=== PATIENT | male | born 1940 | race Two or more races ===

== ENCOUNTER 2020-12-30 14:25 | Inpatient (IN) | payer MEDICARE, MEDICAID ==
[~2020-12-30] VITALS: Ht 167.6 cm; Wt 62.7 kg
[2020-12-30 15:20] LABS: Basophils # (auto) 0.1 10 ^3/uL (0-0.2); Basophils % (auto) 0.6 % (0.0-2.0); Eosinophils # (auto) 0.1 10 ^3/uL (0-0.8); Eosinophils % (auto) 1.1 % (0.0-7.0); Hematocrit 33.5 % (41.0-53.0); Hemoglobin 11.4 g/dL (13.5-17.5); Lymphocytes # (auto) 2.4 10 ^3/uL (0.4-5.4); Lymphocytes % (auto) 23.2 % (10.0-50.0); Mean Corpuscular Hemoglobin 30.4 pg (28.0-32.0); Mean Corpuscular Hgb Conc. 33.9 g/dL (32.0-36.0); Mean Corpuscular Volume 89.7 fL (80.0-100.0); Monocytes # (auto) 0.7 10 ^3/uL (0-1.3); Neutrophils # (auto) 7.1 10 ^3/uL (1.6-8.6); Neutrophils % (auto) 68.1 % (37.0-80.0); Nucleated Red Blood Cells % 0.2 %; Platelet Count (auto) 249 10^3/uL (140-450); Red Blood Cells 3.74 10^6/uL (4.5-5.90); Red Cell Distribution Width 14.2 % (11.8-14.3); White Blood Cell 10.5 10^3/uL (4.4-10.8)
[2020-12-30 15:42] LABS: Albumin 2.8 g/dL (3.4-5.0); Anion Gap 9 (5-15); Blood Urea Nitrogen 33 mg/dL (7-18); Calcium 8.5 mg/dL (8.5-10.1); Carbon Dioxide 23 mmol/L (21-32); Chloride 111 mmol/L (98-107); Glucose 134 mg/dL (74-106); Potassium 4.1 mmol/L (3.5-5.1); Sodium 143 mmol/L (136-145)
[2020-12-30 15:51] LABS: Alanine Aminotransferase 26 U/L (16-61); Alkaline Phosphatase 96 U/L (45-117); Aspartate Aminotransferase 18 U/L (15-37); BUN/Creatinine Ratio 14.2; Bilirubin, Total 0.6 mg/dL (0.2-1.0); GFR African American 35 mL/min; GFR Non-African American 29 mL/min; Total Protein 6.4 g/dL (6.4-8.2)
[2020-12-30 16:32] LABS: INR 1.03 (0.9-1.15)
[2020-12-30] MEDS ORDERED: MORPHINE SULF INJ 2 MG/ML SYRINGE 1ML IV PRN ×2 (19:15)
[2020-12-30] MEDS ORDERED: ACETAMINOPHEN 500 MG TAB PO PRN (19:15)
[2020-12-30] MEDS ORDERED: NITROGLYCERIN 0.4 MG SL TAB SL PRN (19:15)
[2020-12-30] MEDS ORDERED: ONDANSETRON HCL 4 MG/2 ML VIAL IV PRN (19:15)
[2020-12-30] MEDS ORDERED: HYDROcodone-ACET 5/325MG TAB PO PRN (19:15)
[2020-12-30 19:54] LABS: Urine Bacteria NONE SEEN /hpf (None Seen); Urine Blood Negative /uL (Negative); Urine Hyaline Cast FEW /lpf (0 - 2); Urine Specific Gravity 1.013 (1.001-1.035); Urine WBC 1 /hpf (0 - 3)
[2020-12-30] MEDS: hydrALAZINE HCL 20 MG/ML VL IV PRN (20:56)
[2020-12-30] MEDS: ATORVASTATIN 20 MG TAB PO SCH (21:45)
[2020-12-30] MEDS: METOPROLOL TARTRATE 25 MG TAB PO SCH (21:45)
[2020-12-30 22:35] VITALS: BP 161/73
[2020-12-30 23:49] VITALS: BP 161/73
[2020-12-31] MEDS: hydrALAZINE HCL 20 MG/ML VL IV PRN (04:15)
[2020-12-31 05:00] VITALS: BP 152/69
[2020-12-31 08:00] VITALS: BP 156/74
[2020-12-31 08:30] VITALS: BP 156/74
[2020-12-31 09:04] LABS: Basophils # (auto) 0 10 ^3/uL (0-0.2); Basophils % (auto) 0.4 % (0.0-2.0); Eosinophils # (auto) 0.2 10 ^3/uL (0-0.8); Hematocrit 38.4 % (41.0-53.0); Hemoglobin 12.7 g/dL (13.5-17.5); Lymphocytes # (auto) 2.3 10 ^3/uL (0.4-5.4); Lymphocytes % (auto) 20.2 % (10.0-50.0); Mean Corpuscular Hemoglobin 29.9 pg (28.0-32.0); Mean Corpuscular Hgb Conc. 33.1 g/dL (32.0-36.0); Mean Corpuscular Volume 90.2 fL (80.0-100.0); Monocytes # (auto) 0.8 10 ^3/uL (0-1.3); Monocytes % (auto) 6.6 % (0.0-12.0); Neutrophils # (auto) 8.2 10 ^3/uL (1.6-8.6); Neutrophils % (auto) 70.8 % (37.0-80.0); Nucleated Red Blood Cells % 0.1 %; Platelet Count (auto) 302 10^3/uL (140-450); Red Blood Cells 4.25 10^6/uL (4.5-5.90); Red Cell Distribution Width 14.3 % (11.8-14.3); White Blood Cell 11.6 10^3/uL (4.4-10.8)
[2020-12-31 09:20] LABS: Potassium 4.1 mmol/L (3.5-5.1)
[2020-12-31 09:21] LABS: BUN/Creatinine Ratio 16.3
[2020-12-31 09:28] LABS: INR 1.03 (0.9-1.15); Partial Thromboplastin Time 32.6 sec (23.0-31.2)
[2020-12-31] MEDS: FAMOTIDINE 20 MG TAB PO SCH (09:56)
[2020-12-31] MEDS: METOPROLOL TARTRATE 25 MG TAB PO SCH (09:56)
[2020-12-31] MEDS: ENOXAPARIN SOD 30 MG/0.3 ML SYRINGE SC SCH (09:57)
[2020-12-31] MEDS ORDERED: LISINOPRIL 10 MG TAB PO SCH (10:00)
[2020-12-31 13:00] VITALS: BP 178/78
[2020-12-31 17:26] VITALS: BP 150/73
[2020-12-31 22:00] VITALS: BP 174/88
[2020-12-31] MEDS: ATORVASTATIN 20 MG TAB PO SCH (22:55)
[2020-12-31] MEDS: cloNIDine HCL 0.1 MG TAB PO PRN (22:56)
[2021-01-01] MEDS ORDERED: TRAZ-181 PO (00:08)
[2021-01-01] MEDS ORDERED: DONE5TAB80 PO (00:09)
[2021-01-01] MEDS ORDERED: TEMAZEPAM 15 MG CAP PO ONE (00:15)
[2021-01-01 05:40] VITALS: BP 180/77
[2021-01-01] MEDS: cloNIDine HCL 0.1 MG TAB PO PRN (05:41)
[2021-01-01 09:00] VITALS: BP 153/58
[2021-01-01] MEDS: FAMOTIDINE 20 MG TAB PO SCH (09:36)
[2021-01-01] MEDS: ENOXAPARIN SOD 30 MG/0.3 ML SYRINGE SC SCH (09:37)
[2021-01-01] MEDS ORDERED: METOPROLOL TARTRATE 50 MG TAB PO ONE (11:15)
[2021-01-01] MEDS: amLODIPine BESYLATE 5 MG TAB PO SCH (12:20)
[2021-01-01 13:00] VITALS: BP 131/61
[2021-01-01 14:50] LABS: BUN/Creatinine Ratio 19.3; Calcium 8.8 mg/dL (8.5-10.1); Potassium 4.5 mmol/L (3.5-5.1)
[2021-01-01 17:00] VITALS: BP 149/63
[2021-01-01] MEDS: hydrALAZINE HCL 25 MG TAB PO SCH (21:01)
[2021-01-01] MEDS: ATORVASTATIN 20 MG TAB PO SCH (21:01)
[2021-01-01 22:00] VITALS: BP 156/79
[2021-01-01] MEDS ORDERED: METOPROLOL TARTRATE 50 MG TAB PO SCH (22:00)
[2021-01-02 05:00] VITALS: BP 166/74
[2021-01-02] MEDS: hydrALAZINE HCL 25 MG TAB PO SCH ×2 (05:23→13:52)
[2021-01-02 06:22] VITALS: BP 151/70
[2021-01-02 08:00] VITALS: BP 148/74
[2021-01-02] MEDS: amLODIPine BESYLATE 5 MG TAB PO SCH (10:39)
[2021-01-02] MEDS: FAMOTIDINE 20 MG TAB PO SCH (10:39)
[2021-01-02] MEDS: ENOXAPARIN SOD 30 MG/0.3 ML SYRINGE SC SCH (10:39)
[2021-01-02 13:00] VITALS: BP 145/75
[2021-01-02 15:29] VITALS: BP 145/75
== END 2021-01-02 17:15 | disposition home or self-care (01) | DRG 291 ==
LOC: ER 14:25 → TELE 19:08 → TELE-EAST 22:31 → TELE-WESTW 12-31 19:58
PROVIDERS: ADMIT Nurse Practitioner Acute Care; ATTEND Family Medicine
DX: I13.0 Hypertensive heart and chronic kidney disease with heart failure and stage 1 through stage 4 chronic kidney disease, or unspecified chronic kidney disease (principal); N17.0 Acute kidney failure with tubular necrosis; I50.31 Acute diastolic (congestive) heart failure; E44.0 Moderate protein-calorie malnutrition; J98.11 Atelectasis; J91.8 Pleural effusion in other conditions classified elsewhere; Z20.822 Contact with and (suspected) exposure to COVID-19; E11.22 Type 2 diabetes mellitus with diabetic chronic kidney disease; N18.32 Chronic kidney disease, stage 3b; N40.0 Benign prostatic hyperplasia without lower urinary tract symptoms; Z68.22 Body mass index [BMI] 22.0-22.9, adult
CPT/HCPCS: 36415; 71045; 71250; 76775; 78582; 80048; 80053; 81001; 83880; 84300; 84484; 85025; 85379; 85610; 85730; 86141; 87081; 87426; 93306; 93970; 96374; 99291; G0378